=== PATIENT | male | born 1990 | race Hispanic/Latino ===

== ENCOUNTER 2021-01-05 19:39 | Inpatient (IN) | payer OTHER ==
[~2021-01-05 19:39] MED LIST: Iopamidol-370 76% 500 ML 1 ML ONE
[2021-01-05 20:39] LABS: #Lymphocytes 1.9 thou/uL (1.20-3.40); #Neutrophils 5.4 thou/uL (1.40-6.50); %Basophils 0.2 % (0.0-1.0); %Neutrophils 64.7 % (42.0-75.0); Hemoglobin 15.5 g/dL (14.0-18.0); Mean Corpuscular HGB CONC 33.8 g/dL (32.0-36.0); Mean Corpuscular Hemoglobin 30.6 pg (27.0-31.0); Mean Corpuscular Volume 90.8 fL (78.0-98.0); Mean Platelet Volume 8.2 fL (7.4-10.4); Platelet Count 182 thou/uL (130-400); RBC Distribution Width 12.7 % (11.5-14.5); Red Blood Cell (RBC) Count 5.04 mill/uL (4.70-6.10); White Blood Cell (WBC) Count 8.4 thou/uL (4.8-10.8)
[2021-01-05] MEDS ORDERED: Dexamethasone 10 MG/ML VIAL ONE (20:51)
[2021-01-05] MEDS ORDERED: Acetaminophen 500 MG TAB ONE (20:51)
[2021-01-05] MEDS ORDERED: PROVENTIL INHALER 6.7 G (200 INHALATIONS) ONE ×3 (20:54→23:16)
[2021-01-05 20:55] LABS: ALT (SGPT) 31 U/L (8-55); AST (SGOT) 32 U/L (5-34); Albumin 4.6 g/dL (3.5-5.0); Alkaline Phosphatase 58 U/L (40-110); Anion Gap 17 mmol/L (10-20); BUN (Urea Nitrogen) 11 mg/dL (8.9-20.6); Bilirubin, Total 0.5 mg/dL (0.2-1.2); Calc. Creatinine Clearance 0 mL/min (70-130); Calcium 9.5 mg/dL (7.8-10.44); Carbon Dioxide 21 mmol/L (22-29); Chloride 99 mmol/L (98-107); Glucose 113 mg/dL (70-105); Potassium 4.1 mmol/L (3.5-5.1); Protein, Total 8.6 g/dL (6.0-8.3); Sodium 133 mmol/L (136-145)
[2021-01-05] MEDS ORDERED: Albuterol 200 PUFF (6.7GM INHALER) ONE (23:24)
[2021-01-06] MEDS ORDERED: Ondansetron ODT 4 MG TAB SL PRN (01:00)
[2021-01-06] MEDS ORDERED: Ondansetron PF 4 MG/2 ML Vial IVP PRN (01:00)
[2021-01-06 01:08] VITALS: BMI 29.4
[2021-01-06] MEDS: Sodium Chloride 0.9% 1,000 ML IV SCH ×2 (01:18→08:10)
[2021-01-06 06:54] LABS: Band 33 % (5-11); Hemoglobin 17.1 g/dL (14.0-18.0); Lymphocytes 18 % (21-51); MDiff Complete? YES; Mean Corpuscular HGB CONC 34.9 g/dL (32.0-36.0); Mean Corpuscular Hemoglobin 32.3 pg (27.0-31.0); Mean Corpuscular Volume 92.4 fL (78.0-98.0); Mean Platelet Volume 6.2 fL (7.4-10.4); Monocytes 9 % (0-10); Neutrophil 39 % (42-75); Platelet Count 151 thou/uL (130-400); RBC Distribution Width 12.7 % (11.5-14.5); RBC Morphology Normal; Reactive Lymphocytes 1 % (0-10); Red Blood Cell (RBC) Count 5.31 mill/uL (4.70-6.10); White Blood Cell (WBC) Count 5.5 thou/uL (4.8-10.8)
[2021-01-06 07:56] LABS: Anion Gap 15 mmol/L (10-20); BUN (Urea Nitrogen) 11 mg/dL (8.9-20.6); Calc. Creatinine Clearance 167 mL/min (70-130); Calcium 9.6 mg/dL (7.8-10.44); Carbon Dioxide 19 mmol/L (22-29); Chloride 104 mmol/L (98-107); Glucose 137 mg/dL (70-105); Potassium 4.3 mmol/L (3.5-5.1); Sodium 134 mmol/L (136-145)
[2021-01-06] MEDS: Enoxaparin Sodium 40 MG/0.4 ML SYRINGE SC SCH (08:10)
[2021-01-06] MEDS ORDERED: Dexamethasone 4 mg/ml Vial SLOW IVP SCH (10:45)
[2021-01-06] MEDS ORDERED: REMDESIVIR (EUA) 200 MG in Sodium Chloride 0.9% 250 ML 210 ML IV SCH (12:00)
[2021-01-06] MEDS: Ascorbic Acid 500 mg Chewable Tablet PO SCH (12:22)
[2021-01-06] MEDS: Zinc Sulfate 220 MG CAP PO SCH (12:22)
[2021-01-06] MEDS: Aspirin 81 mg Enteric Coated Tablet PO SCH (12:22)
[2021-01-06] MEDS: cefTRIAXone\\ROCEPHIN 2 GM in Sodium Chloride 0.9% 100 ML IVPB SCH (15:10)
[2021-01-06] MEDS: Azithromycin 500 MG in Sodium Chloride 0.9% 250 ML 250 ML IVPB SCH (15:50)
[2021-01-06] MEDS ORDERED: Acetaminophen 325 MG TAB PO PRN (22:25)
[2021-01-07] MEDS: Benzonatate 100 MG CAP PO PRN ×2 (00:04→14:24)
[2021-01-07] MEDS: Aspirin 81 mg Enteric Coated Tablet PO SCH (08:29)
[2021-01-07] MEDS: Dexamethasone 4 mg/ml Vial SLOW IVP SCH (08:29)
[2021-01-07] MEDS: Enoxaparin Sodium 40 MG/0.4 ML SYRINGE SC SCH (08:29)
[2021-01-07] MEDS: Ascorbic Acid 500 mg Chewable Tablet PO SCH (08:29)
[2021-01-07] MEDS: Zinc Sulfate 220 MG CAP PO SCH (08:29)
[2021-01-07] MEDS: REMDESIVIR (EUA) 100 MG in Sodium Chloride 0.9% 250 ML 230 ML IV SCH (12:51)
[2021-01-07] MEDS: cefTRIAXone\\ROCEPHIN 2 GM in Sodium Chloride 0.9% 100 ML IVPB SCH (14:24)
[2021-01-07] MEDS: Azithromycin 500 MG in Sodium Chloride 0.9% 250 ML 250 ML IVPB SCH (15:34)
[2021-01-07] MEDS: Ipratropium Oral Inhaler INH SCH (20:14)
[2021-01-08] MEDS: Ipratropium Oral Inhaler INH SCH ×4 (06:10→17:42)
[2021-01-08] MEDS: Enoxaparin Sodium 40 MG/0.4 ML SYRINGE SC SCH (08:24)
[2021-01-08] MEDS: Aspirin 81 mg Enteric Coated Tablet PO SCH (08:24)
[2021-01-08] MEDS: Dexamethasone 4 mg/ml Vial SLOW IVP SCH ×2 (08:24→21:05)
[2021-01-08] MEDS: Ascorbic Acid 500 mg Chewable Tablet PO SCH (08:24)
[2021-01-08] MEDS: Zinc Sulfate 220 MG CAP PO SCH (08:24)
[2021-01-08] MEDS: REMDESIVIR (EUA) 100 MG in Sodium Chloride 0.9% 250 ML 230 ML IV SCH (12:32)
[2021-01-08] MEDS: cefTRIAXone\\ROCEPHIN 2 GM in Sodium Chloride 0.9% 100 ML IVPB SCH (13:53)
[2021-01-08] MEDS: Azithromycin 500 MG in Sodium Chloride 0.9% 250 ML 250 ML IVPB SCH (13:54)
[2021-01-08] MEDS ORDERED: Benzonatate 100 MG CAP PO SCH (14:30)
[2021-01-09] MEDS: Ipratropium Oral Inhaler INH SCH ×4 (06:27→17:19)
[2021-01-09] MEDS: Zinc Sulfate 220 MG CAP PO SCH (08:12)
[2021-01-09] MEDS: Enoxaparin Sodium 40 MG/0.4 ML SYRINGE SC SCH (08:12)
[2021-01-09] MEDS: Ascorbic Acid 500 mg Chewable Tablet PO SCH (08:12)
[2021-01-09] MEDS: Aspirin 81 mg Enteric Coated Tablet PO SCH (08:12)
[2021-01-09] MEDS: Dexamethasone 4 mg/ml Vial SLOW IVP SCH ×2 (08:12→21:16)
[2021-01-09] MEDS: Cholecalciferol 1,000 UNITS (25 MCG) TAB PO SCH (08:13)
[2021-01-09] MEDS: REMDESIVIR (EUA) 100 MG in Sodium Chloride 0.9% 250 ML 230 ML IV SCH (11:20)
[2021-01-09] MEDS: Azithromycin 500 MG in Sodium Chloride 0.9% 250 ML 250 ML IVPB SCH (14:01)
[2021-01-09] MEDS: cefTRIAXone\\ROCEPHIN 2 GM in Sodium Chloride 0.9% 100 ML IVPB SCH (14:01)
[2021-01-10] MEDS: Enoxaparin Sodium 40 MG/0.4 ML SYRINGE SC SCH (09:00)
[2021-01-10] MEDS: Dexamethasone 4 mg/ml Vial SLOW IVP SCH ×2 (09:00→22:32)
[2021-01-10] MEDS: Zinc Sulfate 220 MG CAP PO SCH (09:01)
[2021-01-10] MEDS: Aspirin 81 mg Enteric Coated Tablet PO SCH (09:01)
[2021-01-10] MEDS: Cholecalciferol 1,000 UNITS (25 MCG) TAB PO SCH (09:01)
[2021-01-10] MEDS: Ascorbic Acid 500 mg Chewable Tablet PO SCH (09:01)
[2021-01-10] MEDS: Ipratropium Oral Inhaler INH SCH ×4 (09:08→18:18)
[2021-01-10] MEDS: REMDESIVIR (EUA) 100 MG in Sodium Chloride 0.9% 250 ML 230 ML IV SCH (12:17)
[2021-01-10] MEDS: cefTRIAXone\\ROCEPHIN 2 GM in Sodium Chloride 0.9% 100 ML IVPB SCH (14:16)
[2021-01-10] MEDS: Azithromycin 500 MG in Sodium Chloride 0.9% 250 ML 250 ML IVPB SCH (15:17)
[2021-01-11] MEDS: Ipratropium Oral Inhaler INH SCH (07:42)
[2021-01-11 07:58] VITALS: BP 99/66; TEMP 97.9
[2021-01-11] MEDS: Enoxaparin Sodium 40 MG/0.4 ML SYRINGE SC SCH (08:16)
[2021-01-11] MEDS: Zinc Sulfate 220 MG CAP PO SCH (08:17)
[2021-01-11] MEDS: Aspirin 81 mg Enteric Coated Tablet PO SCH (08:17)
[2021-01-11] MEDS: Cholecalciferol 1,000 UNITS (25 MCG) TAB PO SCH (08:17)
[2021-01-11] MEDS: Dexamethasone 4 mg/ml Vial SLOW IVP SCH (08:17)
[2021-01-11] MEDS: Ascorbic Acid 500 mg Chewable Tablet PO SCH (08:17)
== END 2021-01-11 11:02 | disposition home or self-care (01) | DRG 871 ==
LOC: ERS 19:39 → INTOOBSV 22:06 → T4-B 22:06 → OBSVTOIN 01-06 12:27
PROVIDERS: ADMIT Student in an Organized Health Care Education/Training Program; ATTEND Internal Medicine
PROC: XW033E5 Introduction of Remdesivir Anti-infective into Peripheral Vein, Percutaneous Approach, New Technology Group 5 (ICD-10-PCS; principal; 2021-01-06)
DX: A41.89 Other specified sepsis (principal); U07.1 COVID-19; J96.01 Acute respiratory failure with hypoxia; J12.82 Pneumonia due to coronavirus disease 2019; F12.10 Cannabis abuse, uncomplicated; Z87.19 Personal history of other diseases of the digestive system; Z98.890 Other specified postprocedural states
CPT/HCPCS: 36415; 36416; 71275; 80048; 80053; 82728; 85007; 85025; 85027; 85379; 86140; 93005; 96372; 96374; 96376; G0378; J0456; J0696; J1100; J1650; J3490; J7050; Q9967